=== PATIENT | male | born 2000 | race African-American/Black ===

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

== ENCOUNTER 2020-05-29 20:55 | Emergency (ER) | payer SELFPAY ==
[2020-05-29] MEDS ORDERED: TETANUS/DIPHTHERIA/PERTUSSIS 0.5 ML SYRINGE IM ONE (21:02)
[2020-05-29] MEDS ORDERED: LIDOCAINE 1%-EPI 1:100000 20 ML MDV SUBQ STA (21:02)
--- NOTE | 2020-05-29 21:16 | ED Physician Documentation ---
PD HPI UPPER EXT INJURY - Stated complaint Stated Complaint: R HAND LAC - Chief complaint Chief Complaint: Laceration - History obtained from History obtained from: Patient - History of Present Illness Location: Right, Hand Type of injury: Laceration Where injury occurred: Home Timing - onset: Other (fall, hand laceration) Timing - details: Abrupt onset Pain level max: 3 Pain level now: 3 Improved by: Rest Worsened by: Moving, Palpating Associated symptoms: No: Weakness, Numbness, Tingling, Swelling Contributing factors: No: Anticoagulated Recently seen: Not recently seen - Additonal information Additional information: unknown last Td. Pt is right handed. Patient fell down the stairs, his hand hit a glass door and broke the glass. Has a laceration to the right hand Review of Systems Constitutional: denies: Fever, Chills Cardiac: denies: Palpitations Respiratory: denies: Dyspnea, Cough GI: denies: Nausea, Vomiting Skin: denies: Rash Musculoskeletal: denies: Neck pain, Back pain Neurologic: denies: Focal weakness, Numbness, Headache PD PAST MEDICAL HISTORY - Past Medical History Past Medical History: Yes Respiratory: Asthma GI: None - Past Surgical History Past Surgical History: No - Present Medications Home Medications: Ambulatory Orders Medication Instructions Recorded Confirmed Cephalexin [Keflex] 500 mg PO Q6H #28 capsule 05/29/20 - Allergies Allergies/Adverse Reactions: Allergies Allergy/AdvReac Type Severity Reaction Status Date / Time No Known Drug Allergies Allergy Verified 05/29/20 21:05 - Social History Does the pt smoke?: Yes Smoking Status: Current every day smoker Does the pt drink ETOH?: Yes Does the pt have substance abuse?: Yes - Immunizations Immunizations are current?: No Immunizations: TDAP current <10years - POLST Patient has POLST: No PD ED PE NORMAL - Vitals Vital signs reviewed: Yes - General General: Alert and oriented X 3, No acute distress - HEENT HEENT: Moist mucous membranes - Neck Neck: Supple, no meningeal sign - Derm Derm: Warm and dry - Neuro Neuro: Alert and oriented X 3 - Psych Psych: Normal mood, Normal affect PD ED PE EXPANDED - Extremities SUZI UE/Hands Visual: 1 - laceration (5cm, irregular, deep, NVI. FROM of all digits.) Results - Vitals Vitals: Vital Signs - 24 hr 05/29/20 21:00 Temperature 36.9 C Heart Rate 114 H Respiratory 18 Rate Blood Pressure 167/108 H O2 Saturation 100 Oxygen O2 Source Room air - Rads (name of study) R hand Radiology: Prelim report reviewed, EMP read contemporaneously, See rad report (No acute abnormalities. No radiopaque foreign bodies) Procedures - Laceration (location) R hand Length in cm: 5 Wound type: Linear, Irregular, Into subcut fat, Clean Neurovascular status: Sensory intact, Motor intact, Vascular intact Tendon involvement: Tendon intact Anesthesia: Lidocaine 1% with epi Wound Preparation: Irrigated copiously NS, Wound explored, To the base. No: FB identified, FB removed Skin layer closure: Nylon, Interrupted, Size #-0 - enter number (4) Other: Patient tolerated well, No complications, Neurovascular intact, Tetanus booster given (tdap) Complexity: Simple PD MEDICAL DECISION MAKING - ED course Complexity details: reviewed results, re-evaluated patient, considered differential, d/w patient ED course: Laceration repaired. Tolerated well. No foreign bodies. No foreign body on x- ray. Neurovascular intact. Tendons intact. Warnings of infection and instructions on wound care given at bedside. Also counseled on how to minimize scarring. Patient counseled regarding signs and symptoms for which I believe an d urgent re-evaluation would be necessary. Patient with good understanding of and agreement to plan and is comfortable going home at this time This document was made in part using voice recognition software. While efforts are made to proofread this document, sound alike and grammatical errors may o ccur. Departure - Departure Disposition: 01 Home, Self Care Clinical Impression: Hand laceration Qualifiers: Encounter type: initial encounter Foreign body presence: without foreign body Laterality: right Qualified Code(s): S61.411A - Laceration without foreign body of right hand, initial encounter Condition: Good Instructions: ED Laceration Hand Follow-Up: your,doctor or here in 10-14 days for suture removal [Other] Prescriptions: Cephalexin [Keflex] 500 mg PO Q6H #28 capsule Comments: Return if you worsen. Keep the wound clean. Return here or follow-up with your doctor in 10 to 14 days for suture removal. Return if you notice redness, swelling or drainage from the wound. Forms: Activity restrictions
[2020-05-29] MEDS ORDERED: BACITRACIN ZINC OINT 1 PACKET TOP STA (22:23)
[2020-05-29] MEDS ORDERED: cephALEXin 250 MG CAPSULE PO STA (22:24)
[2020-05-29 22:37] VITALS: BP 131/75
--- NOTE | 2020-05-30 08:47 | XRAY Report ---
PROCEDURE: Hand 3 View RT INDICATIONS: fall, hand laceration, possible glass? TECHNIQUE: 3 views of the hand(s) acquired. COMPARISON: None FINDINGS: Bones: There is subluxation at the fifth MCP and PIP joints. No suspicious bony lesions. Soft tissues: No suspicious soft tissue calcifications. No radiopaque foreign body. IMPRESSION: Fifth MCP and PIP joint subluxation without visualized fracture. No radiopaque foreign body. The above findings are concordant with preliminary report. Reviewed by: Sunshine Santos MD on 05/30/2020 8:45 AM PDT Approved by: Sunshine Santos MD on 05/30/2020 8:45 AM PDT Station ID: [id number]
== END 2020-05-29 22:37 | disposition home or self-care (01) ==
LOC: ED 20:55
DX: S61.411A Laceration without foreign body of right hand, initial encounter (principal); F17.200 Nicotine dependence, unspecified, uncomplicated; W01.110A Fall on same level from slipping, tripping and stumbling with subsequent striking against sharp glass, initial encounter; Y93.89 Activity, other specified; Y92.009 Unspecified place in unspecified non-institutional (private) residence as the place of occurrence of the external cause
CPT/HCPCS: 12002; 73130; 90471; 90715; 99282; 99283; A9270

== ENCOUNTER 2022-09-28 09:28 | Emergency (ER) | payer SELFPAY ==
[2022-09-28 09:35] VITALS: BP 148/64
--- NOTE | 2022-09-28 10:07 | XRAY Report ---
PROCEDURE: Ankle 3 View RT INDICATIONS: Trauma TECHNIQUE: 3 views of the ankle were acquired. COMPARISON: None FINDINGS: Bones: No fractures or dislocations. Ankle mortise is normally aligned. No suspicious bony lesions . Soft tissues: No tibiotalar joint effusion. Achilles tendon appears normal. IMPRESSION: No evidence acute bony abnormality of the right ankle. If clinical suspicion and/or symptoms persist, further assessment with repeat plain films or advanced imaging (e.g., CT, MRI, or bone scan) may be helpful for further assessment. Reviewed by: Bryon Masterson MD on 09/28/2022 10:06 AM [facility] Approved by: Bryon Masterson MD on 09/28/2022 10:06 AM [facility] Station ID: [id number]
--- NOTE | 2022-09-28 11:53 | ED Physician Documentation ---
History of Present Illness - Stated complaint Stated Complaint: R FOOT SWELLING - Chief complaint Chief Complaint: Trauma Ext - Additonal information Additional information: Patient 22-year-old male presenting to the emergency department with left ankle pain and swelling. Reports was "messing around" with friends Saturday night. Woke Saturday morning with left ankle pain that is made worse with ambulation. Denies previous orthopedic injuries to the same ankle. Reports he has had to miss work secondary to pain. Review of Systems Ten Systems: 10 systems reviewed and negative PD PAST MEDICAL HISTORY - Past Medical History Past Medical History: No Respiratory: Asthma GI: None - Past Surgical History Past Surgical History: No - Present Medications Home Medications: Ambulatory Orders Medication Instructions Recorded Confirmed Naproxen 500 mg PO BID #30 tab 09/28/22 - Allergies Allergies/Adverse Reactions: Allergies Allergy/AdvReac Type Severity Reaction Status Date / Time No Known Drug Allergies Allergy Verified 09/28/22 09:35 - Social History Does the pt smoke?: Yes Smoking Status: Current every day smoker Does the pt drink ETOH?: Yes Does the pt have substance abuse?: Yes Substance Use and Type: Marijuana - Immunizations Immunizations are current?: Yes Immunizations: TDAP current <10years - POLST Patient has POLST: No PD ED PE NORMAL - General General: Alert and oriented X 3 - HEENT HEENT: Atraumatic - Respiratory Respiratory: No respiratory distress - Extremities Extremities: Other (Soft tissue swelling and tenderness located at the lateral and medial malleolus. Achilles tendon is intact. No pain at the navicular bone at the base of the fifth metatarsal. DP and PT pulses palpable. Normal sensation in all dermatomes distal to the site of injury.) Results - Vitals Vitals: Vital Signs - 24 hr 09/28/22 09:33 Temperature 36.5 C Heart Rate 85 Respiratory 16 Rate Blood Pressure 148/64 H O2 Saturation 100 Oxygen O2 Source Room air PD Medical Decision Making - ED course Complexity details: reviewed results, d/w patient ED course: Patient 22-year-old male presenting to the emergency department with right ankle pain. X-rays negative for acute fracture. Neurovascularly intact. No joint instability, and the Achilles tendon is intact. Will provide Дмитрий wrap and crutches. Will start course nonsteroidal anti-inflammatory medications. Patient will be provided with a work note. Encouraged to follow-up with primary care or return to the emergency department. Final clinical impression ankle injury. Departure - Departure Disposition: 01 Home, Self Care Clinical Impression: Ankle injury Instructions: ED Sprain Foot Prescriptions: Naproxen 500 mg PO BID #30 tab Comments: Thank you for allowing us to care for you today [place]. The x-rays taken today did not show any acute fracture to your foot or ankle. Would like you to continue to use the crutches and Дмитрий wrap provided here in the emergency department as needed for pain control. I have sent a prescription for nonsteroidal anti-inflammatory pain medication to your preferred pharmacy, [facility] in [place]. Please use this as directed. Please take this medication with food. I also recommend keeping your injured extremity elevated and use of ice packs to decrease swelling and thereby decrease pain. Your symptoms should improve over the course of the next few days. If 7 days go by without improvement of your symptoms please follow-up with either your primary care doctor or return to the emergency department for reevaluation. Again if it anytime you have any new or worsening symptoms please not hesitate to return. Forms: Activity restrictions
== END 2022-09-28 12:25 | disposition home or self-care (01) ==
LOC: ED 09:28
DX: S99.911A Unspecified injury of right ankle, initial encounter (principal); X58.XXXA Exposure to other specified factors, initial encounter; F17.200 Nicotine dependence, unspecified, uncomplicated
CPT/HCPCS: 99281; 99283

== ENCOUNTER 2023-06-09 10:29 | Outpatient (CLI) | payer SELFPAY | END 2023-06-09 10:30 | disposition EMS.NT | LOC: EMS 10:29 | DX: S61.411A Laceration without foreign body of right hand, initial encounter (principal); W22.8XXA Striking against or struck by other objects, initial encounter; Y93.89 Activity, other specified; Y92.009 Unspecified place in unspecified non-institutional (private) residence as the place of occurrence of the external cause ==